=== PATIENT | female | born 1970 | race Caucasian/White ===

== ENCOUNTER 2017-04-18 11:52 | Inpatient (IN) | payer OTHER ==
[~2017-04-18] VITALS: Ht 157.5 cm; Wt 102.4 kg
[2017-04-18] MEDS ORDERED: ONDANSETRON 4 MG INJ IV PRN ×2 (12:00→14:30)
[2017-04-18] MEDS ORDERED: ACETAMINOPHEN 325 MG TAB PO PRN (12:00)
--- NOTE | 2017-04-18 12:01 | ERA ---
ER Documentation Chief Complaint Date/Time DATE: 04/18/17 TIME: 12:00 Chief Complaint chest pain admit here from [facility] HPI This patient is transferred from [place] and is capitated to her hospital and will be boarding in the emergency department because we do not have any telemetry beds. She is chest pain-free upon arrival. She had a complete cardiac workup at outside hospital. ROS All systems reviewed and are negative except as per history of present illness. Physical Exam Physical Exam General: Well developed, well nourished, no acute distress Head: Normocephalic, atraumatic. Eyes: Pupils equally reactive, EOM intact ENT: Moist mucous membranes Neck: Supple, no lymphadenopathy Respiratory: Lungs clear bilaterally, no distress Cardiovascular: RRR, no murmurs, rubs, or gallops Abdominal: Soft, non-tender, non-distended, no peritoneal signs : Deferred MSK: No edema, no unilateral swelling, 5/5 strength Neurologic: Alert and oriented, moving all extremities, normal speech, no focal weakness, no cerebellar signs Skin: No rash Psych: Normal mood Results 24 hrs Current Medications Medications (Trade) Dose Ordered Sig/Rogerio Route PRN Reason Start Time Stop Time Status Last Admin Dose Admin Ondansetron HCl (Zofran Inj) 4 mg ER BRIDGE PRN IV NAUSEA AND/OR VOMITING 04/18/17 12:00 04/19/17 11:59 Acetaminophen (Tylenol Tab) 650 mg ER BRIDGE PRN PO MILD PAIN/FEVER 04/18/17 12:00 04/19/17 11:59 Procedures/MDM EKG: I reviewed and interpreted a 12-lead EKG. Rhythm: Normal sinus rhythm Ectopy: None Intervals: No abnormalities ST segments: No elevations or depressions T waves: No contiguous inversions EKG performed upon arrival. The patient is asymptomatic. Admission orders placed. Admitting team notified. The patient will be boarding in the emergency department until placement in telemetry unit. Accepting care team and consultations: I discussed the current laboratory data, diagnostic imaging and emergency care provided. Admitting team: Dr. Amato Admitting team indication: Insurance directed Departure Diagnosis: Primary Impression: Chest pain Qualified Code: R07.9 - Chest pain, unspecified type Condition: Stable WM LOCK MD Apr 18, 2017 12:01
[2017-04-18] MEDS ORDERED: HYDR-906 PO (12:30)
[2017-04-18] MEDS ORDERED: CHOL100062 PO (12:30)
[2017-04-18] MEDS ORDERED: LOSA100T7 PO (12:30)
[2017-04-18] MEDS ORDERED: METF500T4 PO (12:31)
[2017-04-18] MEDS ORDERED: METO25TA7 PO (12:31)
[2017-04-18] MEDS ORDERED: OMEP40CA6 PO (12:32)
[2017-04-18] MEDS ORDERED: RANI150T5 PO (12:32)
[2017-04-18] MEDS ORDERED: VITA200C36 PO (12:33)
[2017-04-18] MEDS ORDERED: SIMV20TA PO (12:34)
[2017-04-18] MEDS ORDERED: SIMV10TA PO (12:38)
[2017-04-18] MEDS ORDERED: DOCUSATE SODIUM 100 MG CAP PO PRN (14:30)
[2017-04-18] MEDS ORDERED: ZOLPIDEM 5 MG TAB PO PRN (14:30)
[2017-04-18] MEDS ORDERED: METOPROLOL (XL) 25 MG TAB PO SCH (14:30)
[2017-04-18] MEDS ORDERED: morphine 2 MG INJ IV PRN (14:30)
[2017-04-18] MEDS ORDERED: HYDROCODONE/APAP (5/325) TAB PO PRN (14:30)
[2017-04-18] MEDS ORDERED: NACL 0.9% 3 ML SYG IV SCH (14:30)
[2017-04-18] MEDS ORDERED: NITROGLYCERIN (SL) 0.4 MG TAB SL PRN (14:30)
[2017-04-18 14:36] VITALS: BP 161/85; PULSE 82; RESP 18
[2017-04-18 14:38] VITALS: Ht 157.5 cm; Wt 102.4 kg
--- NOTE | 2017-04-18 14:52 | HP ---
Date/Time of Note Date/Time of Note DATE: 04/18/17 TIME: 14:40 Assessment/Plan VTE Prophylaxis VTE Prophylaxis Intervention: LMWH Assessment/Plan Chief Complaint/Hosp Course 1. 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 Diabetes Check A1c Resume home meds, NovoLog sliding scale 3. Hypertension Patient BP was elevated at home prior to arrival in the ED, currently improved Resume home medications and will give hydralazine as needed 4. Obesity Advise lifestyle change 5. History of GERD Continue PPI Prophylaxis: Lovenox Problems: HPI/ROS Admit Date/Time Admit Date/Time April 18, 2017 Hx of Present Illness Patient is a 46-year-old female with a history of morbid obesity, non-insulin- requiring diabetes, hypertension and questionable coronary disease. Patient states that she had a history of a clogged artery in her heart but states that she lost weight and it resolved. Patient comes in with 1 week of intermittent chest pain, she describes the pain as sharp throughout her chest radiating into her left neck and left arm. Pain is alleviated by sleep and exacerbated by activity as well as coughing. Patient states that the pain can last for minutes and sometimes for hours but it is intermittent. Patient does have a history of gastritis and is on PPI therapy. Patient states that she recently gained weight and she recently had a left knee surgery. Patient has no other complaints at this time. Of note patient was transferred from [facility] , and the ER at outside hospital patient's EKG showed sinus rhythm and labs including troponin were within normal limits. ROS Constitutional: improved, no complaints Eyes: no complaints ENT: no complaints Respiratory: no complaints Cardiovascular: chest pain Gastrointestinal: no complaints Genitourinary: no complaints Musculoskeletal: no complaints Skin: no complaints Neurologic: no complaints Endocrine: no complaints Lymphatic: no complaints Psychological: nl mood/affect, no complaints Immunologic: no complaints PMH/Family/Social Past Medical History Umo-qwggffy-lpjvbiwkw diabetes, hypertension, morbid obesity, GERD Past Surgical History Recent left knee surgery Family History Significant Family History: no pertinent family hx Social History Alcohol Use: none Smoking Status: Never smoker Drug Use: none Exam/Review of Systems Vital Signs Vitals Vital Signs Date Time Temp Pulse Resp B/P Pulse Ox O2 Delivery O2 Flow Rate FiO2 04/18/17 14:36 98.1 82 18 161/85 98 Room Air Exam Constitutional: alert, oriented Head: normocephalic Respiratory: clear to auscultation Cardiovascular: regular rate and rhythm Gastrointestinal: other (Obese), soft, No distended Musculoskeletal: nl extremities to inspection Medications Medications Current Medications Ondansetron HCl (Zofran Inj) 4 mg Q6H PRN IV NAUSEA AND/OR VOMITING; Start at 14:30 Acetaminophen (Tylenol Tab) 650 mg Q6H PRN PO PAIN LEVEL 1-3 OR FEVER; Start at 14:30 Acetaminophen/ Hydrocodone Bitart ([place] (5/325)) 1 tab Q6H PRN PO MODERATE PAIN LEVEL 4-6; Start 04/18/17 at 14:30 Morphine Sulfate (morphine) 2 mg Q4H PRN IV SEVERE PAIN LEVEL 7-10; Start 04/18 at 14:30 Docusate Sodium (Colace) 100 mg Q12H PRN PO CONSTIPATION; Start 04/18/17 at 14: 30 Zolpidem Tartrate (Ambien) 5 mg QHS PRN PO SLEEP; Start 04/18/17 at 14:30 Enoxaparin Sodium (Lovenox) 40 mg DAILY SC ; Start 04/19/17 at 09:00 Aspirin (Aspirin) 81 mg DAILY PO ; Start 04/20/17 at 09:00 Nitroglycerin (Nitroglycerin (Sl Tab) 0.4 Mg) 1 tab Q5M PRN SL CHEST PAIN; Start 04/18/17 at 14:30 Cholecalciferol (Vitamin D) 3,000 unit DAILY PO ; Start 04/19/17 at 09:00 Losartan Potassium (Cozaar) 100 mg DAILY PO ; Start 04/18/17 at 14:30 Metoprolol Succinate (Toprol Xl) 25 mg DAILY PO ; Start 04/18/17 at 14:30 Ranitidine HCl (Zantac) 150 mg QAM PO ; Start 04/19/17 at 09:00 Pantoprazole (Protonix Tab) 40 mg DAILY@06 PO ; Start 04/18/17 at 15:00 Atorvastatin Calcium (Lipitor) 10 mg HS PO ; Start 04/18/17 at 21:00 Miscellaneous Information 2 cap DAILY PO ; Start 04/19/17 at 09:00; Status UNV Diagnostic Test (Pha) (Accu-Chek) 1 ea 02 XX ; Start 04/19/17 at 02:00 Miscellaneous Information 1 ea NOTE XX ; Start 04/18/17 at 15:00 Glucose (Glutose) 15 gm Q15M PRN PO DECREASED GLUCOSE; Start 04/18/17 at 15:00 Glucose (Glutose) 22.5 gm Q15M PRN PO DECREASED GLUCOSE; Start 04/18/17 at 15: 00 Dextrose (D50w Syringe) 25 ml Q15M PRN IV DECREASED GLUCOSE; Start 04/18/17 at 15:00 Dextrose (D50w Syringe) 50 ml Q15M PRN IV DECREASED GLUCOSE; Start 04/18/17 at 15:00 Glucagon (Glucagen) 1 mg Q15M PRN IM DECREASED GLUCOSE; Start 04/18/17 at 15:00 Glucose (Glutose) 15 gm Q15M PRN BUCCAL DECREASED GLUCOSE; Start 04/18/17 at 15 :00 Procedures Procedures Labs at outside hospital show normal CBC normal BMP normal troponin normal BNP normal INR negative test, negative toxicology, UA was negative EKG was normal with normal sinus rhythm RADHA HANSEN Apr 18, 2017 14:52
[2017-04-18] MEDS ORDERED: CALCIUM CARBONATE 500 MG CHEW TAB PO PRN (15:00)
[2017-04-18] MEDS ORDERED: GLUCOSE GEL 15 GRAM TUBE PO PRN ×2 (15:00)
[2017-04-18] MEDS ORDERED: GLUCAGON 1 MG INJ IM PRN (15:00)
[2017-04-18] MEDS ORDERED: hydrALAzine 20 MG INJ IV PRN (15:00)
[2017-04-18] MEDS ORDERED: DEXTROSE 50% 50 ML SYRINGE IV PRN ×2 (15:00)
[2017-04-18] MEDS ORDERED: GLUCOSE GEL 15 GRAM TUBE BUCCAL PRN (15:00)
[2017-04-18] MEDS: METOPROLOL 100 MG TAB PO SCH ×2 (15:33→20:40)
[2017-04-18] MEDS: PANTOPRAZOLE (EC) 40 MG TAB PO SCH (15:33)
[2017-04-18] MEDS: LOSARTAN 50 MG TAB PO SCH (15:33)
[2017-04-18] MEDS: AMLODIPINE 10 MG TAB PO SCH (15:33)
[2017-04-18 16:26] VITALS: PULSE 84
[2017-04-18] MEDS: INSULIN ASPART [NOVOLOG] 3 ML PEN SC SCH ×2 (17:12→20:41)
[2017-04-18] MEDS: VITAMIN E 400 UNITS CAP PO SCH (17:12)
[2017-04-18] MEDS: metFORMIN 500 MG TAB PO SCH (17:13)
[2017-04-18 20:00] VITALS: PULSE 73
[2017-04-18 20:17] VITALS: BP 135/71; RESP 19
[2017-04-18] MEDS ORDERED: ATORVASTATIN 10 MG TAB PO SCH (21:00)
[2017-04-19] VITALS (8 sets, daily range): BP systolic 103–121; BP diastolic 57–70; PULSE 72–88; RESP 17–20
[2017-04-19] MEDS: ACETAMINOPHEN 325 MG TAB PO PRN ×2 (01:26→08:16)
[2017-04-19] MEDS ORDERED: ACCU-CHEK XX SCH (02:00)
[2017-04-19] MEDS: PANTOPRAZOLE (EC) 40 MG TAB PO SCH (05:06)
[2017-04-19 06:43] LABS: BASOPHILS % 0.3 % (0.0-2.0); EOSINOPHILS # 0.2 10^3/ul (0.0-0.5); EOSINOPHILS % 2.7 % (0.0-7.0); HEMATOCRIT 40.5 % (37.0-47.0); HEMOGLOBIN 13.7 g/dl (12.0-16.0); LYMPHOCYTES # 2.8 10^3/ul (0.8-2.9); LYMPHOCYTES % 36.4 % (15.0-51.0); MEAN CORPUSCULAR HEMOGLOBIN 31.7 pg (29.0-33.0); MEAN CORPUSCULAR HGB CONC 33.8 g/dl (32.0-37.0); MEAN CORPUSCULAR VOLUME 93.8 fl (82.0-101.0); MEAN PLATELET VOLUME 8.9 fl (7.4-10.4); MONOCYTE # 0.6 10^3/ul (0.3-0.9); MONOCYTES % 7.3 % (0.0-11.0); NEUTROPHIL # 4.1 10^3/ul (1.6-7.5); NEUTROPHILS % 52.9 % (39.0-77.0); PLATELET COUNT 296 10^3/UL (140-415); RED BLOOD COUNT 4.32 10^6/ul (4.20-5.40); RED CELL DISTRIBUTION WIDTH 12.2 % (11.5-14.5); WHITE BLOOD COUNT 7.8 10^3/ul (4.8-10.8)
[2017-04-19 07:25] LABS: CALCIUM 9.6 mg/dl (8.4-10.2); CHOL/HDL RATIO 2.9 RATIO; CREATININE 0.59 mg/dl (0.44-1.00); MAGNESIUM 1.9 mg/dl (1.7-2.5); PHOSPHORUS 5.5 mg/dl (2.5-4.9); POTASSIUM 4.3 mmol/L (3.5-5.1)
[2017-04-19] MEDS: INSULIN ASPART [NOVOLOG] 3 ML PEN SC SCH ×2 (08:00→11:46)
[2017-04-19] MEDS: VITAMIN E 400 UNITS CAP PO SCH (08:17)
[2017-04-19] MEDS: LOSARTAN 50 MG TAB PO SCH (08:18)
[2017-04-19] MEDS: metFORMIN 500 MG TAB PO SCH (08:22)
[2017-04-19] MEDS: METOPROLOL 100 MG TAB PO SCH (08:22)
[2017-04-19] MEDS ORDERED: CHOLECALCIFEROL 1,000 UNIT TAB PO SCH (09:00)
[2017-04-19] MEDS ORDERED: RANITIDINE 150 MG TAB PO SCH (09:00)
[2017-04-19] MEDS ORDERED: ENOXAPARIN 40 MG/0.4 ML SYG SC SCH (09:00)
[2017-04-19] MEDS: AMLODIPINE 10 MG TAB PO SCH (11:47)
--- NOTE | 2017-04-19 13:48 | CONS ---
Date/Time of Note Date/Time of Note DATE: 04/19/17 TIME: 13:45 Assessment/Plan Assessment/Plan Additional Assessment/Plan Atypical chest pain Hypertensive Urgency diabetes hypertension dyslipidemia obesity BP better controlled. dneis chest pain Continue Metoprolol, Norvasc and Losartan Continue Lipitor Continue Metformin Continue GI and DVT Prophylaxis Consultation Date/Type/Reason Admit Date/Time Apr 18, 2017 at 11:56 Initial Consult Date Exam/Review of Systems Vital Signs Vitals Vital Signs Date Time Temp Pulse Resp B/P Pulse Ox O2 Delivery O2 Flow Rate FiO2 04/19/17 12:29 88 04/19/17 11:45 98.5 17 108/70 96 04/18/17 14:36 Room Air Intake and Output 04/18/17 04/18/17 04/19/17 15:00 23:00 07:00 Intake Total 1000 ml 700 ml Balance 1000 ml 700 ml Exam Constitutional: alert, oriented Head: atraumatic, normocephalic Neck: non-tender, supple Respiratory: clear to auscultation Cardiovascular: regular rate and rhythm Gastrointestinal: nl liver, spleen, non-tender, soft Extremities: normal pulses Results Result Diagram: 04/19/17 0550 04/19/17 0550 Results 24 hrs Laboratory Tests Test 04/18/17 17:11 04/18/17 18:55 04/18/17 20:39 04/19/17 01:08 Bedside Glucose 117 91 Troponin I < 0.012 < 0.012 Test 04/19/17 05:50 04/19/17 08:08 04/19/17 11:44 White Blood Count 7.8 Red Blood Count 4.32 Hemoglobin 13.7 Hematocrit 40.5 Mean Corpuscular Volume 93.8 Mean Corpuscular Hemoglobin 31.7 Mean Corpuscular Hemoglobin Concent 33.8 Red Cell Distribution Width 12.2 Platelet Count 296 Mean Platelet Volume 8.9 Neutrophils % 52.9 Lymphocytes % 36.4 Monocytes % 7.3 Eosinophils % 2.7 Basophils % 0.3 Nucleated Red Blood Cells % 0.0 Neutrophils # 4.1 Lymphocytes # 2.8 Monocytes # 0.6 Eosinophils # 0.2 Basophils # 0.0 Nucleated Red Blood Cells # 0.0 Sodium Level 142 Potassium Level 4.3 Chloride Level 102 Carbon Dioxide Level 25 Anion Gap 19 H Blood Urea Nitrogen 11 Creatinine 0.59 Glucose Level 99 Hemoglobin A1c 6.0 H Calcium Level 9.6 Phosphorus Level 5.5 H Magnesium Level 1.9 Triglycerides Level 222 H Cholesterol Level 167 LDL Cholesterol, Calculated 66 HDL Cholesterol 57 Cholesterol/HDL Ratio 2.9 Bedside Glucose 101 77 Medications Medications Current Medications Ondansetron HCl (Zofran Inj) 4 mg Q6H PRN IV NAUSEA AND/OR VOMITING Last administered on 04/19/17 01:27; Admin Dose 4 MG; Start 04/18/17 at 14:30 Acetaminophen (Tylenol Tab) 650 mg Q6H PRN PO PAIN LEVEL 1-3 OR FEVER Last administered on 04/19/17 08:16; Admin Dose 650 MG; Start 04/18/17 at 14:30 Acetaminophen/ Hydrocodone Bitart ([place] (5/325)) 1 tab Q6H PRN PO MODERATE PAIN LEVEL 4-6; Start 04/18/17 at 14:30 Morphine Sulfate (morphine) 2 mg Q4H PRN IV SEVERE PAIN LEVEL 7-10; Start 04/18 at 14:30 Docusate Sodium (Colace) 100 mg Q12H PRN PO CONSTIPATION; Start 04/18/17 at 14: 30 Zolpidem Tartrate (Ambien) 5 mg QHS PRN PO SLEEP; Start 04/18/17 at 14:30 Enoxaparin Sodium (Lovenox) 40 mg DAILY SC Last administered on 04/19/17 08:19 ; Admin Dose 40 MG; Start 04/19/17 at 09:00 Aspirin (Aspirin) 81 mg DAILY PO ; Start 04/20/17 at 09:00 Nitroglycerin (Nitroglycerin (Sl Tab) 0.4 Mg) 1 tab Q5M PRN SL CHEST PAIN; Start 04/18/17 at 14:30 Cholecalciferol (Vitamin D) 3,000 unit DAILY PO Last administered on 04/19/17 08:17; Admin Dose 3,000 UNIT; Start 04/19/17 at 09:00 Losartan Potassium (Cozaar) 100 mg DAILY PO Last administered on 04/19/17 08: 18; Admin Dose 100 MG; Start 04/18/17 at 14:30 Ranitidine HCl (Zantac) 150 mg QAM PO Last administered on 04/19/17 08:17; Admin Dose 150 MG; Start 04/19/17 at 09:00 Pantoprazole (Protonix Tab) 40 mg DAILY@06 PO Last administered on 04/19/17 05 :06; Admin Dose 40 MG; Start 04/18/17 at 15:00 Atorvastatin Calcium (Lipitor) 10 mg HS PO Last administered on 04/18/17 20:40 ; Admin Dose 10 MG; Start 04/18/17 at 21:00 Vitamin E (Vitamin E) 800 units DAILY PO Last administered on 04/19/17 08:17; Admin Dose 800 UNITS; Start 04/18/17 at 16:00 Diagnostic Test (Pha) (Accu-Chek) 1 ea 02 XX ; Start 04/19/17 at 02:00 Miscellaneous Information 1 ea NOTE XX ; Start 04/18/17 at 15:00 Glucose (Glutose) 15 gm Q15M PRN PO DECREASED GLUCOSE; Start 04/18/17 at 15:00 Glucose (Glutose) 22.5 gm Q15M PRN PO DECREASED GLUCOSE; Start 04/18/17 at 15: 00 Dextrose (D50w Syringe) 25 ml Q15M PRN IV DECREASED GLUCOSE; Start 04/18/17 at 15:00 Dextrose (D50w Syringe) 50 ml Q15M PRN IV DECREASED GLUCOSE; Start 04/18/17 at 15:00 Glucagon (Glucagen) 1 mg Q15M PRN IM DECREASED GLUCOSE; Start 04/18/17 at 15:00 Glucose (Glutose) 15 gm Q15M PRN BUCCAL DECREASED GLUCOSE; Start 04/18/17 at 15 :00 Hydralazine HCl (Apresoline) 10 mg Q4H PRN IV SBP>170; Start 04/18/17 at 15:00 Calcium Carbonate (Tums) 500 mg Q6H PRN PO GASTROINTESTINAL UPSET; Start at 15:00 Amlodipine Besylate (Norvasc) 10 mg DAILY PO Last administered on 04/19/17 11: 47; Admin Dose 10 MG; Start 04/18/17 at 15:00 Metoprolol Tartrate (Lopressor) 100 mg BID PO Last administered on 04/19/17 08 :22; Admin Dose 100 MG; Start 04/18/17 at 15:00 EVANGELINA SORIANO M.D. Apr 19, 2017 13:48
--- NOTE | 2017-04-19 14:08 | RADRPT ---
Echocardiogram Report Patient Name: BRADLEY HUTCHINS Gender: Female Date: 1970 Study Date: 19-Apr-2017 [place] Consultant: JUAN Location: I Ref. Physician: DUSTY MENDEZ Quality: Adequate Procedures: Transthoracic echocardiogram with complete 2D, M-Mode, and doppler examination. Indications: Chest Pain. 2D/M Mode Doppler Measurement Value Normal Ranges Measurement Value Normal Ranges AoR Diam MM 2.8 cm AV Peak Edmund 1.0 m/sec ACS MM 1.9 cm AV Peak PG 4.0 mmHg LVIDd 2D 4.8 3.5 - 5.6 cm LVOT Peak Edmund 0.8 m/sec LVIDs 2D 3.3 2.1 - 4.1 cm LVOT Peak PG 2.3 mmHg LVPWd 2D 1.0 0.6 - 1.1 cm MV E Peak Edmund 0.5 m/sec IVSd 2D 1.3 0.6 - 1.1 cm MV A Peak Edmund 0.6 m/sec EDV 2D 105.8 cm3 MV E/A 0.8 ESV 2D 35.5 cm3 MV Decel Time 196 msec LA Dimen 2D 4.2 2.3 - 4.0 cm MV Decel [place] 2 MV E/A 0.8 PV Peak Edmund 0.9 m/sec PV Peak PG 3.0 mmHg Findings Left Ventricle: Normal left ventricular systolic function. Normal left ventricular cavity size. Mild hypertrophy of the basal septum. Ejection fraction is visually estimated at 55 %. Tissue Doppler/Mitral Doppler indices are consistent with impaired relaxation (Stage I diastolic dysfunction). E/E`=6. Right Ventricle: Normal right ventricular size. Normal right ventricular systolic function. Left Atrium: There is mild enlargement of left atrium. Right Atrium: The right atrium is normal in size. Atrial Septum: Not well visualized. Mitral Valve: Normal appearance and function of the mitral valve with trace physiologic regurgitation. Aortic Valve: No significant aortic stenosis or insufficiency. Normal trileaflet aortic valve structure. Tricuspid Valve: Normal appearance of the tricuspid valve. No evidence of tricuspid regurgitation. Pulmonic Valve: Normal pulmonic valve appearance. There is trace pulmonic regurgitation. Pericardium: Normal pericardium with no significant pericardial effusion. Aorta: Normal aortic root. IVC: The IVC is not well visualized. Pulmonary Artery: Normal pulmonary artery size. Conclusions 1.Normal left ventricular systolic function. Normal left ventricular cavity size. Mild hypertrophy of the basal septum. Ejection fraction is visually estimated at 55 %. Tissue Doppler/Mitral Doppler indices are consistent with impaired relaxation (Stage I diastolic dysfunction). 2.Normal right ventricular size. Normal right ventricular systolic function. 3.No significant aortic stenosis or insufficiency. Normal trileaflet aortic valve structure. 4.Normal appearance and function of the mitral valve with trace physiologic regurgitation. 5.Normal appearance of the tricuspid valve. No evidence of tricuspid regurgitation. 6.Normal pericardium with no significant pericardial effusion. Electronically Signed By: Dusty Mendez 19-Apr-2017 14:07:38 -0700 Patient Name: BRADLEY HUTCHINS Study Date: 19-Apr-2017 [id number]
--- NOTE | 2017-04-19 14:28 | PDOCDIS ---
Discharge Instructions CONDITION Patient Condition: Good HOME CARE INSTRUCTIONS: Special Diet: Cardiac/Carb Controlled ACTIVITY: Activity Restrictions: No Restrictions FOLLOW UP/APPOINTMENTS Follow-up Plan F/U WITH YOUR PCP IN 1-2 WEEKS RADHA HANSEN Apr 19, 2017 14:28
[2017-04-19] MEDS ORDERED: METO-407 PO (14:32)
[2017-04-19] MEDS ORDERED: AMLO-147 PO (14:32)
--- NOTE | 2017-04-19 18:26 | DS ---
Date/Time of Note Date/Time of Note DATE: 04/19/17 TIME: 18:21 Discharge Summary Admission/Discharge Info Admit Date/Time Apr 18, 2017 at 11:56 Discharge Date/Time Apr 19, 2017 at 15:45 Discharge Diagnosis 1. Atypical chest pain secondary to musculoskeletal pain versus GERD -ACS ruled out, cardiology consultation appreciated -Continue home meds 2. Diabetes -A1c 6.0 -Continue home regimen 3. Hypertensive urgency-BP now stable DC home with new regimen of Toprol 100 mg p.o. twice daily and Norvasc 10 mg daily, continue home Cozaar 4. Obesity Advised lifestyle change 5. History of GERD Continue PPI Patient Condition: Good Hospital Course Patient is a 46-year-old female with a history of morbid obesity, non-insulin- requiring diabetes, hypertension and questionable coronary disease. Patient comes in with 1 week of intermittent chest pain, she describes the pain as sharp throughout her chest radiating into her left neck and left arm. Patient was seen by cardiology, she was ruled out for acute coronary syndrome with troponins and echo. Of note patient blood pressure was elevated on arrival and patient was started on Norvasc and her metoprolol was increased. Conditions per cardiology was DC with that regimen to continue home Cozaar as well. Patient's pain was felt to be secondary to either GERD or muscle skeletal pain, of note patient's pain did resolve the day of discharge BP was stable on day of discharge. On the day of discharge patient's vitals, labs, physical exam are stable, patient had no acute complaints and was clear for DC per cardiology. Home Meds Active Scripts Amlodipine Besylate* (Amlodipine Besylate*) 10 Mg Tablet, 10 MG PO DAILY, #60 TAB 1 Refill Prov:RADHA HANSEN 04/19/17 Metoprolol Tartrate* (Lopressor*) 100 Mg Tablet, 100 MG PO BID, #60 TAB 1 Refill Prov:RADHA HANSEN 04/19/17 Reported Medications Simvastatin* (Zocor*) 10 Mg Tablet, 10 MG PO QHS, #30 TAB 04/18/17 Vitamin E* (Vitamin E*) Unknown Strength Capsule, 2 CAP PO DAILY, CAP 04/18/17 Omeprazole* (Omeprazole*) 40 Mg Capsule.dr, 40 MG PO QHS, #30 CAP 04/18/17 Ranitidine Hcl* (Ranitidine Hcl*) 150 Mg Tablet, 150 MG PO QAM, #30 TAB 04/18/17 Metformin Hcl* (Metformin Hcl*) 500 Mg Tablet, 500 MG PO WITH BREAKFAST DINNE, # 60 TAB 04/18/17 Losartan Potassium* (Losartan Potassium*) 100 Mg Tablet, 100 MG PO DAILY, TAB 04/18/17 Cholecalciferol* (Vitamin D3*) 1,000 Unit Tablet, 3000 UNIT PO DAILY, TAB 04/18/17 Hydrocodone/Acetaminophen ([place] 5-325 Tablet) 1 Each Tablet, 1 EACH PO NEEDED Y for PAIN LEVEL 6-10, TAB 04/18/17 Discontinued Reported Medications Metoprolol Succinate* (Toprol XL*) 25 Mg Tab.sr.24h, 25 MG PO DAILY, #30 TAB 04/18/17 Simvastatin* (Zocor*) Unknown Strength Tablet, 1 TAB PO QHS, #30 TAB 04/18/17 Follow-up Plan Follow-up with PCP 1-2 weeks Primary Care Provider Not On Staff Doctor Time spent on discharge: > 30 minutes RADHA HANSEN Apr 19, 2017 18:26
[2017-04-20] MEDS ORDERED: ASPIRIN 81 MG TAB PO SCH (09:00)
== END 2017-04-19 15:45 | disposition home or self-care (01) | DRG 313 ==
LOC: E/R 11:52 → MS4 11:56
PROVIDERS: ADMIT Internal Medicine; ATTEND Internal Medicine
DX: R07.89 Other chest pain (principal); Z68.41 Body mass index [BMI] 40.0-44.9, adult; I10 Essential (primary) hypertension; K21.9 Gastro-esophageal reflux disease without esophagitis; E11.9 Type 2 diabetes mellitus without complications; I16.0 Hypertensive urgency; E66.8 Other obesity
CPT/HCPCS: 80048; 80061; 82962; 83036; 83735; 84100; 84484; 85025; 87081; 93005; 93306; J1650; J1815; J2405